=== PATIENT | male | born 1935 | race Caucasian/White ===

== ENCOUNTER 2022-12-31 16:52 | Inpatient (IN) | payer OTHER, SELFPAY ==
[2022-12-31 15:40] VITALS: BP 174/88; PULSE 88; RESP 18; TEMP 36.8; O2SAT 96
[2022-12-31 16:00] VITALS: O2SAT 96
[2022-12-31 16:23] VITALS: BMI 26.9
[2022-12-31 16:41] VITALS: BP 160/88; PULSE 89; RESP 18; TEMP 37.3; O2SAT 95
[2022-12-31] MEDS: 0.9% Saline Lock 10 ML Syringe IV (18:41)
[2022-12-31] MEDS: Furosemide 20 MG/2 ML VIAL IV (18:41)
--- NOTE | 2022-12-31 18:49 | PCM.HP.STD ---
HPI - General General Date of Admission: 12/31/22 HPI Narrative KEVIN LIRA, is a 87 M who presents from outside hospital with increased shortness of breath. According to him and his family he generally does not see doctors and does not take any medications at home but was recently being worked up for possible prostate cancer. He has not obtained a biopsy and they are discussing whether or not even want to proceed with a biopsy because they do not want to do any chemotherapy or radiation. With the increased shortness of breath they present to the outside hospital and they found a moderately sized right pleural effusion with either a pulmonary mass or pneumonia so was given Rocephin. There is also on CT scan evidence of bony metastases which is supported by an elevated alk phos. Of note his proBNP was also elevated but there is no history of heart failure. [facility] Medical History (Updated 12/31/22 @ 18:[address] Ren Moran MD) Pneumonia Prostate cancer Home Medications NK 07/25/22 [History Last Taken Unknown] Allergy/AdvReac Type Severity Reaction Status Date / Time No Known Allergies Allergy Unverified 11/19/22 11:29 Family History Father Cancer breast cancer Mother Diabetes Brother Cancer unknown Surgical History H/O umbilical hernia repair Social History Smoking Status: Former smoker quit date: 08/13/07 ROS Constitutional Constitutional: Denies chills, fatigue, fever(s) or malaise Eyes Eyes: Denies blurry vision ENT HEENT: Denies headache(s) or nasal discharge Cardiovascular Cardiovascular: Denies chest pain, dyspnea on exertion or syncope Respiratory/Chest Respiratory/Chest: Reports shortness of breath at rest and shortness of breath with exertion; Denies cough Gastrointestinal Gastrointestinal: Denies constipation, diarrhea, nausea or vomiting Genitourinary Genitourinary: Denies dysuria Neurologic Neurologic: Denies focal weakness, numbness or tremor(s) Psychiatric Psychiatric: Denies anxiety or depression Vital Signs Vital Signs Vital Signs: 12/31/22 15:40 12/31/22 16:41 12/31/22 16:00 Temperature 98.2 F 99.2 F H Temperature Source Oral Oral Pulse Rate 88 89 Respiratory Rate 18 18 Respiratory Effort Normal Non-Labored Accessory Muscle Use Respiratory Depth Normal Respiratory Pattern Normal Blood Pressure 174/88 H 160/88 H Blood Pressure Mean 116 112 Blood Pressure Source Monitor Monitor Blood Pressure Position Semi-Fowlers Semi-Fowlers Blood Pressure Location Left Arm Left Arm Pulse Ox 96 95 96 Oxygen Delivery Method Nasal Cannula Nasal Cannula Nasal Cannula Oxygen Flow Rate (L/min) 4 3 4 Weight Weight: 177 lb 4.026 oz Body Mass Index (BMI) 26.9 Physical Exam Narrative General: Alert, Oriented x3, Cooperative, No apparent distress HEENT: Atraumatic, PERRLA, EOMI, Normocephalic, hard of hearing Oral: Moist Mucosa Neck: Supple, No JVD Lungs: Diminished, Normal air movement, No rhonchi, No wheeze, No rales, could not speak in complete sentences Cardiovascular: Regular rate, Regular Rhythm, Normal S1, Normal S2, No murmurs Abdomen: Soft, Non Tender, Non-Distended, No Hepato-splenomegaly Extremities: Edema, Capillary Refill Less than 3 Seconds Skin: No rashes, No breakdown Musculoskeletal: No Tenderness to Palpation of Joints or Extremities Neurological: Cranial nerves II-XII grossly intact, Motor Exam 5/5 strength throughout, Sensory exam intact to light touch and pain Psych/Mental Status: Normal Affect, Appropriate Assessment & Plan Assessment/Plan (1) Hypoxia: PLAN: Plan 1. Acute hypoxia secondary to pneumonia versus CHF exacerbation/pleural effusion possibly malignant ? He does not have a medical history of CHF however given the pleural effusion on my review of his chest x-ray image as well as his lower extremity edema and the elevated proBNP on from the outside hospital this is a possibility ? Of note troponins were unremarkable at the outside hospital ? We will trial him on a dose of IV Lasix this evening and obtain an echo in the morning ? We will continue with antibiotics for another 24 to 48 hours pending results of the sputum culture, he is afebrile without a leukocytosis ? We will obtain thoracentesis to be both therapeutic and diagnostic I will also obtain cytology 2. 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 I had a 25-minute advance care planning discussion based on the prognosis and diagnosis of prostate cancer ? His PSA at the outside hospital was elevated to 860 and he does have what appears to be bony metastatic lesions in his spine as well as mediastinal lymphadenopathy. ? He is not even sure that he wants to proceed with a biopsy and he knows that he does not want to do any treatment, other than a treatment that was discussed that he does not quite remember but involve a subcu injection every 3 months in his abdomen. I discussed with him that if he does not get a biopsy and we do not have a diagnosis that no treatment will be provided. We did discuss the possibility of hospice if he decides that he does not want to proceed with treatment and biopsy. ? Because they are unclear as to what they would want to do at the moment will not consult urology and since we do not have a diagnosis that is confirmed will not consult oncology at this time DVT: Lovenox Charges/Coding Visit Charges Inpatient E&M: 32926 Init Hosp L3 Procedures Hospitalists Procedures: 19352 Advncd Care Plan 30 Min
--- NOTE | 2022-12-31 18:50 | ECHOD_ITS ---
Reason For Study: CHF Procedure This was a 2D Doppler, Color Flow transthoracic echocardiogram. Exam performed portable in patient room. Left Ventricle Normal size and thickness. The left ventricular ejection fraction is 60 %. Stage 2 diastolic dysfunction. Right Ventricle Normal right ventricle. Atria The left atrium is mildly enlarged. The right atrium is moderately enlarged. Bubble contrast study is negative for PFO/ASD. Mitral Valve Moderate focal mitral valve calcification of the posterior leaflet. Tricuspid Valve Mild to moderate (1-2+) tricuspid valve insufficiency. Pulmonary artery systolic pressure is 62 mmHg. Severe pulmonary hypertension. Aortic Valve Aortic sclerosis, no stenosis. Pulmonic Valve The pulmonic valve is not well visualized. Great Vessels Normal sized aortic root. Pericardium/Pleural No pericardial effusion. Medication Performed a rapid injection of agitated mix of 9 cc saline and 1cc air to assess for atrial septal defect. MMode/2D Measurements & Calculations LVIDd: 5.4 cm IVSd: 0.99 cm Ao root diam: 3.6 cm LVIDs: 3.7 cm LVPWd: 0.92 cm RVDd: 3.9 cm FS: 30.8 % LAV(MOD-bp): 81.2 ml LVAd ap4: 39.1 cm2 SV(MOD-sp4): 93.4 ml LAV(MOD-bp) Indexed: 41.8 ml/m2 LVLd ap4: 8.7 cm LAV(MOD-sp2): 76.0 ml EDV(MOD-sp4): 147.5 ml LAV(MOD-sp4): 78.0 ml EDV(sp4-el): 149.1 ml LVAs ap4: 21.8 cm2 LVLs ap4: 7.5 cm ESV(MOD-sp4): 54.1 ml ESV(sp4-el): 54.2 ml EF(MOD-sp4): 63.3 % EF(sp4-el): 63.7 % SV(sp4-el): 94.9 ml LA A4 area: 25.2 cm2 LA dimension(2D): 3.9 cm RA A4 area: 28.3 cm2 Time Measurements MV dec time: 0.21 sec Doppler Measurements & Calculations MV E max jose: 83.0 cm/sec Lat Peak E' Jose: 5.5 cm/sec Med Peak E' Jose: 5.8 cm/sec MV A max jose: 133.9 cm/sec E/E' lat: 15.0 E/E' med: 14.4 MV E/A: 0.62 Ao V2 max: 160.8 cm/sec LV V1 max: 92.6 cm/sec PA V2 max: 118.5 cm/sec Ao max P.3 mmHg LV V1 max P.4 mmHg TR max jose: 378.9 cm/sec TR max P.4 mmHg ECHO/Echo Complete Interpretation Summary The left ventricular ejection fraction is 60 %. Stage 2 diastolic dysfunction. The left atrium is mildly enlarged. The right atrium is moderately enlarged. Moderate focal mitral valve calcification of the posterior leaflet. Mild to moderate (1-2+) tricuspid valve insufficiency. Severe pulmonary hypertension. Aortic sclerosis, no stenosis. Ordering Physician: Ren Moran Referring Physician: Dai Tatum Performed By: Karen Colon, TIFFANIE
[2022-12-31 22:20] VITALS: BP 150/70; PULSE 95; RESP 16; TEMP 36.4; O2SAT 92
[2022-12-31 22:40] VITALS: BP 153/78; PULSE 95; RESP 18; TEMP 36.4; O2SAT 93
[2023-01-01] VITALS (13 sets, daily range): BP systolic 122–150; BP diastolic 64–89; PULSE 70–89; RESP 16–20; TEMP 36.6–36.9; O2SAT 92–96
--- NOTE | 2023-01-01 | IMM_PTH ---
PATIENT: KEVIN LIRA LOC: [facility] U#:[id number] AGE/SX: 87/M ROOM: [facility] RE12/31/[address]: Dr. Yvon Wilkinson MD : 1935 BED: 1 DIS: 01/02/2023 SPEC #: [id number] RECD: 01/03/23 13:16 STATUS: SOUElda REQ #: [id number] LATESHA: 01/01/23 00:[address]: Yvon Wilkinson DEPT: IMMUNOHISTOCHEMISTRY RECD BY: Leatha Max ENTERED: 01/03/23 13:18 SP TYPE: IMMUNO OTHR DR: MD Dr. Dai Green MD Dr. Nicholas F Kotsonis, MD Rebecca Bean, PA Tissues: THORACIC FLUID Procedures: RCC (add) NAPSIN A (add) Joel Ret (add) CK20 (add) CK5-6 (add) CK7 (add) CK8 (add) HEP PAR (add) MACRO (add) TTF1 (add) Vimentin (add) Pankeratin (initial) P40 (add) PSAP (add) PHYSICIAN & [place] [id number] SPECIMEN INFORMATION: Tissue Source: Thoracentesis fluid Clinical Info: Right pleural effusion Specimen Number: [id number] CPT code: 39625, 74664 x13 METHODOLOGY: Deparaffinized sections of prefer/formalin-fixed tissue or PAP/DQ stained slides are incubated with monoclonal/polyclonal antibodies/oligonucleotide probes. Localization is made via biotin free immunoperoxidase method. Appropriate controls are performed and reacted as expected. Results on target cell population are indicated in the following table: RESULTS: ANTIBODY / CLONE RESULT AE1-3 (AE1/AE3/PCK26) negative * CK7 (OV-TL12/30) negative * CK8 (06jjedE63) negative * CK20 (KS20.8) negative Vimentin (V9) negative * Macro (HAM-56) negative (positive in macrophages) TTF-1 (8G7G3/1) negative Napsin A (Rabbit Polyclonal) negative HepPar (OCh1E5) negative RCC (PN-15) negative PSAP (PASE/4LJ) negative CALRET (polyclonal) negative * CK5-6 (D5 & 1684) negative * P40 (BC28) negative *?Positive in mesothelial cells. These tests were developed and their performance characteristics determined by [facility]. They may not have been cleared or approved by the U.S. Food and Drug Administration. The FDA has determined that such clearance or approval is not necessary. The above immunohistochemical/dualISH markers are ordered and reviewed by the Pathologist. INTERPRETATION: Thoracentesis (cell block): Negative for malignant cells. SJ:fidencio 01/06/2023
--- NOTE | 2023-01-01 | FLU_PTH ---
PATIENT: KEVIN LIRA LOC: [facility] U#:[id number] AGE/SX: 87/M ROOM: [facility] RE12/31/[address]: Dr. Yvon Wilkinson MD : 1935 BED: 1 DIS: 01/02/2023 SPEC #: [id number] RECD: 01/01/23 13:45 STATUS: TAMMIE REMarietta #: [id number] LATESHA: 01/01/23 00:[address]: Yvon Wilkinson DEPT: CYTOLOGY RECD BY: Celia Anna ENTERED: 01/02/23 08:05 SP TYPE: Fluid OTHR DR: MD Dr. Dai Green MD Dr. Nicholas F Kotsonis, MD Rebecca Bean, PA Tissues: THORACIC FLUID Procedures: Special Stain Group II Surgery Specimen Level IV Cytospin Fluid HEADER OPERATION: Ultrasound-guided right thoracentesis PRE-OP DIAGNOSIS: Right pleural effusion TISSUE SUBMITTED: Thoracentesis fluid for cytology DIAGNOSIS CYTOLOGY Thoracentesis fluid for cytology (cytospin and cell block): Negative for malignant cells. See comment. LYN:fidencio 01/03/2023 COMMENT Immunohistochemistry ([id number]) supports the above diagnosis. Case has been reviewed in consultation with Dr. Harris who concurs with the above diagnosis. IDC:AM CYTOLOGY STUDY Slides are reviewed. CYTOLOGY GROSS Received is 180 ml of dark jolly cloudy fluid labeled with the patient's name and and designated per the requisition as thoracentesis. Submitted for cytology preparation including cell block. / fidencio 01/02/2023 TC:5 CPT: 30165, 90892
--- NOTE | 2023-01-01 02:06 | EKG12_ITS ---
Test Reason : CP Blood Pressure : / mmHG Vent. Rate : 088 BPM Atrial Rate : 088 BPM P-R Int : 220 ms QRS Dur : 090 ms QT Int : 356 ms P-R-T Axes : 046 045 085 degrees QTc Int : 430 ms Sinus rhythm with 1st degree A-V block Minimal voltage criteria for LVH, may be normal variant ( [place] product ) Nonspecific ST and T wave abnormality Abnormal ECG No previous ECGs available Confirmed by OSWALD STEVENSON, EMILY ([id number]), editor dictionary FARHAD PARR ([id number]) on 01/02/2023 8:50:29 AM Referred By: Dai Tatum Confirmed By:EMILY AKERS MD
[2023-01-01 02:41] LABS: Absolute Lymphocyte Count 0.74 X10^3/uL (0.83-4.51); Absolute Neutrophil Count 7.3 X10^3/uL (2.0-7.7); Basophil# 0.02 X10^3/uL; Basophil% 0.2 % (0-1); Eosinophil# 0.01 X10^3/uL; Eosinophils% 0.1 % (0-5); Hematocrit 43.5 % (40-54); Hemoglobin 13.5 g/dL (13.0-16.5); Lymphocyte # 0.74 X10^3/ul (0.83-4.51); Lymphocyte % 7.6 % (19-41); Mean Corpuscular Hgb 28.4 pg (27.0-32.0); Mean Corpuscular Volume 91.4 fL (80-94); Mean Platelet Vol. 9.8 fl (6.2-12.0); Monocyte# 1.66 X10^3/uL; NRBC Flagged by Analyzer 0 % (0-5); Neutrophil # 7.27 X10^3/uL (2.7-7.7); Neutrophil % 74.6 % (47-70); POSITIVE DIFFERENTIAL YES; Platelet Count 150 K/mm3 (150-450); RBC Distribution Width CV 14.6 % (11.6-14.6); RBC Distribution Width SD 48.8 fl (35.1-43.9); Red Blood Count 4.76 M/mm3 (4.6-6.2); White Blood Count 9.8 K/mm3 (4.4-11.0)
[2023-01-01 02:48] LABS: Differential Indicated SCAN CRITERIA MET
[2023-01-01 02:54] LABS: Magnesium 1.8 mg/dL (1.6-2.6)
[2023-01-01 03:02] LABS: ALB/GLOB Ratio 0.7 RATIO (0.9-2.4); Anion Gap 7 (5-15); BUN 15 mg/dL (7-18); BUN/Creat Ratio 21.8 RATIO (10-20); Calcium,Total 8.3 mg/dL (8.5-10.1); Chloride 96 mmol/L (98-107); Creatinine, Serum 0.69 mg/dL (0.70-1.30); EST Glomerular Filtration Rate 116 mL/min (>60); Est Glom Filt Rate - Afr Amer 140 mL/min (>60); Globulin 3.6 g/dL (2.2-4.2); Glucose 119 mg/dL (74-106); LDH 307 U/L (87-241); Potassium 4.1 mmol/L (3.5-5.1); Protein, Total 6.2 g/dL (6.4-8.2); Sodium Level 132 mmol/L (136-145)
--- NOTE | 2023-01-01 07:57 | PN.HOSP_ITS ---
Reason for Visit Reason for Visit: Diagnoses Hypoxemia (12/31/22) Subjective Subjective Follow-up for shortness of breath, metastatic prostate cancer with right moderate pleural effusion, volume this point. Objective Data Objective Data Vital Signs: Vital Signs Temp Pulse Resp BP Pulse Ox O2 Del Method O2 Flow Rate 98 F 70 18 130/77 H 92 Nasal Cannula 4 01/01/23 05:32 01/01/23 05:32 01/01/23 05:32 01/01/23 05:32 01/01/23 07:14 01/01/23 07:14 01/01/23 07:14 Oxygen Flow Rate (L/min) 4 Oxygen Delivery Method Nasal Cannula Weight: 177 lb 4.026 oz Body Mass Index (BMI) 26.9 Intake & Output: Intake and Output for Last 24 Hours 12/30/22 12/31/22 01/01/23 23:59 23:59 23:59 Intake Total 240 / 240 Balance 240 / 240 Lab / Micro Data Result Diagrams: 01/01/23 02:30 01/01/23 02:30 Labs: Laboratory Results - last 24 hr 01/01/23 02:30: WBC 9.8, RBC 4.76, Hgb 13.5, Hct 43.5, MCV 91.4, MCH 28.4, MCHC 31.0 L, RDW Std Deviation 48.8 H, RDW Coeff of Ran 14.6, Plt Count 150, MPV 9.8, Immature Gran % (Auto) 0.500, Neut % (Auto) 74.6 H, Lymph % (Auto) 7.6 L, [place] % (Auto) 17.0 H, Eos % (Auto) 0.1, Baso % (Auto) 0.2, Absolute Neuts (auto) 7.3, Absolute Lymphs (auto) 0.74 L, Nucleated RBC % 0 01/01/23 02:30: Sodium 132 L, Potassium 4.1, Chloride 96 L, Carbon Dioxide 29.0, Anion Gap 7, BUN 15, Creatinine 0.69 L, Estim Creat Clear Calc 51.30, Est GFR (MDRD) Af Amer 140, Est GFR (MDRD) Non-Af 116, BUN/Creatinine Ratio 21.8 H, Glucose 119 H, Calcium 8.3 L, Lactate Dehydrogenase 307 H, Total Protein 6.2 L, Globulin 3.6, Albumin/Globulin Ratio 0.7 L 01/01/23 02:30: Magnesium 1.8 Physical Exam Narrative Seen and examined. Patient still present in the room. Patient has increased frequency but denies dysuria. Patient was found to have prostate cancer in October 2022. He he has seen Dr. Us and PSA was found high. He also follows Dr. Rodriguez. CT scan shows bony metastasis in the spine with elevated alkaline phosphatase. Shortness of breath is better. Physical exam General: Alert, Oriented x3, Cooperative HEENT: Atraumatic, PERRLA, EOMI, Normocephalic Oral: Oral mucosa moist. No Gingival or Mucosal Lesions/ Ulcerations Neck: Supple, No JVD, Negative Carotid Bruits Lungs: Air entry diminished in right lung below fourth intercostal space. Stony dullness moderate pleural effusion. No crepitation/rhonchi. Cardiovascular: Regular rate, Regular Rhythm, Normal S1, Normal S2, No murmurs Abdomen: Bowel Sounds Present, Soft, Non Tender, Non-Distended : Increased frequency. No renal angle tenderness. No suprapubic tenderness. Extremities: No edema, Capillary Refill Less than 3 Seconds Skin: No rashes, No breakdown Musculoskeletal: No Tenderness to Palpation of Joints or Extremities Neurological: Cranial nerves II-XII grossly intact, DTR 2+/4 and Symmetrical, Neuro grossly intact Psych/Mental Status: Normal Affect, Appropriate. Assessment & Plan Assessment/Plan (1) Hypoxia: PLAN: Plan 87-year-old gentleman is being admitted from outside [facility] for increased shortness of breath. Moderate right pleural effusion with either pulmonary mass or pneumonia was found in outside hospital and empirically on Rocephin. On CT scan evidence of bony metastasis with elevated alkaline phosphatase. 1. Acute hypoxia most likely due to right pleural effusion possible malignant effusion differential includes acute on chronic heart failure and pneumonia: Patient is admitted in PCU, direct admit from general pulmonary and hospital. Patient had thoracocentesis today and 600 mL blood-tinged fluid was taken out. Fluid analysis shows mainly mononuclear cells. Follow-up chest x-ray shows no pneumothorax.patient had mainly right pleural effusion light criteria satisfies pleural effusion is not degenerative. Cytology is pending. Patient denies history of heart failure probably undiagnosed. Patient had elevated proBNP and mild lower extremity edema also shows he has history of undiagnosed heart failure. 2D echo was done which shows EF 60%, stage II diastolic dysfunction LA mildly enlarged, 1-2+ TR with severe pulmonary hypertension suggestive of acute on chronic HFpEF and severe pulmonary hypertension. Patient had 1 dose of IV Lasix. Troponins were unremarkable. Patient empirically on IV ceftriaxone and Zithromax. Confirmed with ultrasound that fluid for culture was sent. 2. 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 Discussed with Dr. Hong. Dr. Hong will see the patient. PSA at outside hospital was high [address] chest and appears to metastatic lesion in his spine and mediastinal lymphadenopathy. As per patient Dr. Us is planning for LHRH agonist and every 3 monthly injection. Patient does not want chemotherapy or radiotherapy or surgery. DVT: Lovenox Charges/Coding Visit Charges Inpatient E&M: 80126 Subs Hosp L2
[2023-01-01 08:34] LABS: International Normalized Ratio 1.3; Partial Thromboplast Time 34.8 Seconds (24.1-36.2); Prothrombin Time (Protime)PT. 15.5 SECONDS (11.7-14.9)
[2023-01-01] MEDS: Ceftriaxone 1 GM/50 ML BAG IV (09:34)
[2023-01-01] MEDS: 0.9% Saline Lock 10 ML Syringe IV (09:34)
--- NOTE | 2023-01-01 11:20 | CASEMGMT ---
LORY HERRON Face to Face with patient for initial transition planning/care coordination assessment. RN GOPAL introduced self and role at [facility]. Patient lying in bed, alert and oriented, son at bedside. Patient willing to participate in assessment and is able to answer all questions appropriately. Care providers, pharmacy, and demographics verified. Patient wishes to discharge home, denies need for home health at this time. Patient states he has no further needs or concerns at this time. CM to follow for discharge planning needs that may arise. PCP: Adi Specialists: Hal, oncologist; Abbea, urologist Preferred Pharmacy: [facility] Insurance: [place] Prescription Benefit: none Living Will/HPOA: yes, son Caleb Avila LNOK: 12 children Living Arrangements: Patient lives alone in a single story home with ramp to enter the home. Patient states he is independent at home. Transportation: [employer] DME/HHC: patient has shower chair, raised toilet, cane, walker, grab bars. Patient has generator at home. Son states that is brother has concentrator with fillable tanks possible available for patient, he will check with brother. No previous HHC or SNF. Disposition Plan: Patient to discharge home with family support and follow-up plans in place. Will monitor for home oxygen. Archana MEI, RN, CM
[2023-01-01] MEDS: Lidocaine 2% (20 ml mdv) 20 ML Vial INFILT (13:22)
--- NOTE | 2023-01-01 13:40 | RAD_ITS ---
STUDY: X-RAY CHEST REASON FOR EXAM: Male, 87 years old. Post thora TECHNIQUE: A PA inspiration and expiration views. COMPARISON: Comparison is made with prior study December 31, 2022. FINDINGS: The patient is status post right thoracentesis. There is no evidence of pneumothorax. RAD/Chest Insp/Exp 2 View IMPRESSION: No evidence of pneumothorax following the right thoracentesis. Electronically Signed: Bill Espinoza MD at 14:33 EDT ,
[2023-01-01 13:50] LABS: Cytology, Body Fluid / CSF SEE PATHOLOGY REPORT
[2023-01-01 14:03] LABS: Body Fluid Mononuclear WBC # 5.544 10^3/uL; Body Fluid Polynuclear WBC # 0.482 10^3/uL; Body Fluid Total Cells Counted 6.108 10^3/ul; Red Cell Count/Body Fluid 0.023 10^6/ul; White Blood Count/Body Fluid 6.026 10^3/uL
[2023-01-01 14:23] LABS: Auto B Fluid Analyzer BKGD Ct COUNTS W/IN LIMITS (W/IN LIMITS)
[2023-01-01 14:24] LABS: Appearance/Body Fluid SL CLDY; Color/Body Fluid PINK; Source- Body Fluid THORACENTESIS
[2023-01-01 14:25] LABS: Glucose, Body Fluid 126 mg/dL (40-70); LDH,Body Fluid 186 Units/l (Not Establ.); Protein, Body Fluid 3.2 g/dL (Not Establ.)
[2023-01-01 15:02] LABS: Lymphocytes 81 %; Mesothelial Cells 4 %; Monocytes 4 %; Neutrophil (Segs) 11 %
[2023-01-01 15:03] LABS: Body Fluid QC Type(s) BF4Q
--- NOTE | 2023-01-01 16:15 | CON.PCM.UR_ITS ---
Assessment & Plan Assessment/Plan (1) Hypoxia: PLAN: Patient improving (2) Pneumonia: PLAN: Stable and improving (3) Prostate cancer: PLAN: He has advanced metastatic prostate cancer. Today I spoke to the patient about treatment options. He can call my office for an appointment and we can get him started on hormone deprivation therapy as well as antiandrogens in the office. We discussed the side effects of treatment with expect with the medications the benefit of slowing the growth he understands it will not be curative I understands that the average response rate varies between 18 to 24 months. He understands the risk and benefits this was discussed with him today. If he wishes to start hormone deprivation therapy he can call my office after discharge and make an appointment. Call me with questions HPI Consult Data Date of Consult: 01/01/23 HPI Narrative Reason for Consultation: Advanced prostate cancer HPI Narrative: KEVIN LIRA, is a 87 M who presents to [facility] with sh ortness of breath and pneumonia and hypoxia, he does have a history of a very elevated PSA recent x-rays and scans demonstrate he has metastatic prostate cancer. Seen in the office regarding the situation and today I came by and spoke to the patient regarding his diagnosis of prostate cancer. He can definitely make an appointment to see me in the office and we can start him on hormone deprivation therapy and oral antiandrogens as a very simple but effective treatment for his prostate cancer I told the patient with his stage and grade of cancer that the life expectancy with treatment can vary between 18 to 24 months depending on response to treatment. He does have a very low performance status and has multiple medical problems. [facility] Medical History (Updated 01/01/23 @ 16:[address] Raymundo Us MD) Pneumonia Prostate cancer Home Medications NK 07/25/22 [History Last Taken Unknown] Allergy/AdvReac Type Severity Reaction Status Date / Time No Known Allergies Allergy Unverified 11/19/22 11:29 Family History Father Cancer breast cancer Mother Diabetes Brother Cancer unknown Surgical History H/O umbilical hernia repair Social History Smoking Status: Former smoker quit date: 08/13/07 ROS Constitutional Constitutional: Denies chills, fever(s) or malaise Eyes Eyes: Denies blurry vision or change in vision ENT HEENT: Reports none Cardiovascular Cardiovascular: Denies chest pain or palpitations Respiratory/Chest Respiratory/Chest: Reports systems reviewed and no addt'l complaints, except as documented and as per HPI; Denies cough or shortness of breath with exertion Gastrointestinal Gastrointestinal: Denies abdominal pain, constipation or diarrhea Musculoskeletal Musculoskeletal: Denies back pain, joint stiffness or joint swelling Integumentary Integumentary: Denies dry skin, jaundice, lesions or rash Neurologic Neurologic: Denies confusion, syncope or weakness Psychiatric Psychiatric: Reports none; Denies anxiety or depression Endocrine Endocrinology: Denies excessive sweating, fatigue or flushing Hematologic/Lymphatic Hematologic/Lymphatic: Denies anemia, easy bleeding or easy bruising Physical Exam Const alert and oriented x3 General Appearance: cooperative HEENT normocephalic, head/scalp atraumatic, EAC's normal and TM's normal bilaterally Eyes PERRL and EOMs intact bilaterally Pupil: sluggish Neck no lymphadenopathy, supple and no JVD General: trachea midline Lymph Lymphatic: no lymphadenopathy noted, lymphedema and lymphadenopathy Resp normal respiratory effort, normal air movement and clear to auscultation b ilaterally Cardio regular rate, regular rhythm and peripheral pulses 2+ throughout GI soft to palpation, non-tender and non-distended Extremity normal capillary refill and no clubbing, cyanosis or edema General Extremity: no tenderness to palpation of joints or extremities Skin no rashes or lesions noted General Skin Exam: turgor normal Lesions: no lesions Rashes: no rashes Neuro CN's II-XII intact bilaterally Speech: speech normal Motor Exam: strength 5/5 throughout; Negative for general weakness Psych thought process normal, cooperative and affect normal Appearance: appropriate Lab / Micro Data Result Diagrams: 01/01/23 02:30 01/01/23 02:30 Labs: Laboratory Results - last 24 hr 01/01/23 02:30: WBC 9.8, RBC 4.76, Hgb 13.5, Hct 43.5, MCV 91.4, MCH 28.4, MCHC 31.0 L, RDW Std Deviation 48.8 H, RDW Coeff of Ran 14.6, Plt Count 150, MPV 9.8, Immature Gran % (Auto) 0.500, Neut % (Auto) 74.6 H, Lymph % (Auto) 7.6 L, [place] % (Auto) 17.0 H, Eos % (Auto) 0.1, Baso % (Auto) 0.2, Absolute Neuts (auto) 7.3, Absolute Lymphs (auto) 0.74 L, Nucleated RBC % 0 01/01/23 02:30: Sodium 132 L, Potassium 4.1, Chloride 96 L, Carbon Dioxide 29.0, Anion Gap 7, BUN 15, Creatinine 0.69 L, Estim Creat Clear Calc 51.30, Est GFR (MDRD) Af Amer 140, Est GFR (MDRD) Non-Af 116, BUN/Creatinine Ratio 21.8 H, Glucose 119 H, Calcium 8.3 L, Lactate Dehydrogenase 307 H, Total Protein 6.2 L, Globulin 3.6, Albumin/Globulin Ratio 0.7 L 01/01/23 02:30: Magnesium 1.8 01/01/23 08:00: PT 15.5 H, INR 1.3, APTT 34.8 01/01/23 13:46: Fluid Glucose 126 H, Fluid Total Protein 3.2, Fluid LDH 186 01/01/23 13:48: Fluid Source THORACENTESIS, Fluid Color PINK, Fluid Appearance SL CLDY, Fluid WBC 6.026, Fluid RBC 0.023, Fluid Tot Cell Count 6.108, Fld Polynuclear WBCs # 0.482, Fld Polynuclear WBCs % 8.0, Fluid Mononuclear WBCs 5.544, Fld Mononuclear WBCs % 92.0, Fluid Neutrophils 11, Fluid Lymphocytes 81, Fluid Monocytes 4, Fld Mesothelial Cells 4, Fl Pathologist Comment May follow, Fluid Comment 2 SEE COMMENT Radiology Impression Echocardiogram 12/31/22 18:50 Interpretation Summary The left ventricular ejection fraction is 60 %. Stage 2 diastolic dysfunction. The left atrium is mildly enlarged. The right atrium is moderately enlarged. Moderate focal mitral valve calcification of the posterior leaflet. Mild to moderate (1-2+) tricuspid valve insufficiency. Severe pulmonary hypertension. Aortic sclerosis, no stenosis. Ordering Physician: Ren Moran Referring Physician: Dai Tatum Performed By: Karen Colon, RDRANDALL Chest X-Ray 01/01/23 13:40 IMPRESSION: No evidence of pneumothorax following the right thoracentesis. Electronically Signed: Bill Espinoza MD at 14:33 EDT , Thoracentesis Ultrasound 01/01/23 17:55 IMPRESSION: Ultrasound-guided right thoracentesis. Electronically Signed: Bill Espinoza MD at 14:21 EDT ,
--- NOTE | 2023-01-01 17:55 | US_ITS ---
PROCEDURE: ULTRASOUND GUIDED THORACENTESIS. DATE: January 01, 2023. INDICATION: Male, 87 years old. Right pleural effusion. PHYSICIAN: Bill Espinoza M.D. PROCEDURE: The risks, benefits, and alternatives to the procedure were explained to the patient. The specific risks of bleeding, infection, and pneumothorax requiring chest tube insertion were discussed and accepted. Written informed consent was obtained. Ultrasonographic evaluation of the right lower pleural space was carried out. An adequate pocket was identified. The patient was placed in the sitting, upright position. The overlying skin was prepped and draped in sterile fashion. 1% lidocaine was administered subcutaneously for local anesthesia. Under ultrasound guidance, a 5 Azeri thoracentesis needle/catheter system was advanced into the right posterior lower pleural fluid collection. Approximately 600 mL of blood tinged fluid was drained. The catheter was removed, and a sterile dressing was applied. A specimen was collected and sent to the laboratory for analysis, as requested by the referring clinician. The patient tolerated the procedure well. A chest x-ray was ordered. US/Thoracentesis W US IMPRESSION: Ultrasound-guided right thoracentesis. Electronically Signed: Bill Espinoza MD at 14:21 EDT ,
[2023-01-01] MEDS: Docusate Sodium 100 MG Capsule PO (21:46)
[2023-01-02 01:00] VITALS: BP 122/86; PULSE 80; RESP 16; TEMP 36.6; O2SAT 92
[2023-01-02 03:56] VITALS: BP 126/65; PULSE 84; RESP 16; TEMP 36.8; O2SAT 94
[2023-01-02 07:38] VITALS: O2SAT 90
--- NOTE | 2023-01-02 09:42 | DCINST_ITS ---
Discharge Instructions Diet Discharge Diet: No restrictions Activity Discharge Activity: Return to Normal Activity Weight Bearing Status: Weight bearing as tolerated Dressing / Incision Call your doctor if you observe: Fever of 101 or Higher, Coldness, Increased Pain, Numbness or Tingling, Change in Color, Inability to urinate, Inability to have a bowel movement, Shortness of breath, Dizziness, Fainting spells, Swelling in the ankles, Chest pain, Prolonged hiccupping, Increased palpitations (irregular heartbeat) and Calf discomfort Follow Up Care When: IN 2 WEEKS Test Results: Test results from this visit will be discussed in further detail at your follow- up appointment, if applicable. Discharge Plan Admission Admit Date/Time: 12/31/22 16:52 Primary Reason for Your Visit: Prostate cancer mets with BONE, Spine Attending Provider: Yvon Wilkinson Primary Care Provider: Soledad Joshi Consulting Providers: Ren Moran Juan Miguel Instructions Patient Instructions: MACIEJ RN Thoracentesis Dc Discharge Orders/Prescriptions Prescriptions: New cefdinir 300 mg capsule 300 mg PO BID Qty: 10 0RF Referrals / Follow Up: Gurpreet Hong MD [Med Staff - Active Staff] - Raymundo Us MD [Med Staff - Active Staff] - Soledad Joshi PA [Primary Care Provider] - Disposition Disposition (needs filled in before D/C Order can be placed): Home, Self Care
[2023-01-02] MEDS: 0.9% Saline Lock 10 ML Syringe IV (10:22)
[2023-01-02] MEDS: Ceftriaxone 1 GM/50 ML BAG IV (10:22)
[2023-01-02] MEDS: Docusate Sodium 100 MG Capsule PO (10:23)
[2023-01-02] MEDS: Enoxaparin 40 MG/0.4 ML Syringe SC (10:24)
[2023-01-02 10:53] VITALS: BP 112/66; PULSE 77; RESP 16; TEMP 36.7; O2SAT 95
--- NOTE | 2023-01-02 11:52 | PCM.DC.SUM ---
Providers Date of Admission: 12/31/22 Date of Discharge: 01/02/23 Primary Care Physician: YESSICA Ye Consultations 01/01/23 13:09 Consult: Urology Routine Consulting Provider: Raymundo Us Reason for Consult: Metastatic prosate Ca EMERGENT Consult: No MD Notified: Yes Date Notified: 01/01/23 Time Notified: 13:10 Method of Notification: Text Reason For Visit: CHEST PAIN/PNEUMONITIS Diagnosis Discharge Diagnosis (1) Hypoxia: Status: Acute Code(s): R09.02 - Hypoxemia (2) Pneumonia: Status: Acute Code(s): J18.9 - Pneumonia, unspecified organism (3) Prostate cancer: Status: Acute Code(s): C61 - Malignant neoplasm of prostate Plan 87-year-old gentleman is being admitted from outside [facility] for increased shortness of breath. Moderate right pleural effusion with either pulmonary mass or pneumonia was found in outside hospital and empirically on Rocephin. On CT scan evidence of bony metastasis with elevated alkaline phosphatase. 1. Acute hypoxia most likely due to right pleural effusion possible malignant effusion differential includes acute on chronic heart failure and low priority of pneumonia: Patient is admitted in PCU, direct admit from general pulmonary and hospital. Patient had thoracocentesis today and 600 mL blood-tinged fluid was taken out. Fluid analysis shows mainly mononuclear cells. Follow-up chest x-ray shows no pneumothorax.patient had mainly right pleural effusion light criteria satisfies pleural effusion is exudative. Cytology is pending. Patient denies history of heart failure probably undiagnosed. Patient had elevated proBNP and mild lower extremity edema also shows he has history of undiagnosed heart failure. 2D echo was done which shows EF 60%, stage II diastolic dysfunction LA mildly enlarged, 1-2+ TR with severe pulmonary hypertension suggestive of acute on chronic HFpEF and severe pulmonary hypertension. Patient had 1 dose of IV Lasix. Troponins were unremarkable. Patient empirically on IV ceftriaxone and Zithromax. Confirmed with ultrasound that fluid for culture was sent. 01/02: Fluid cytology is pending. Patient is shortness of breath is better. Fluid culture not showing up although IR industrial safety and health technician is stated that she send the fluid culture. I called microbiology and they have extra fluid tube so they will process the culture. Patient empirically discharged on 5 more days of cefdinir to complete a total of 7 days of antibiotic. Discussed with Dr. Hong and he will follow-up with cytology and culture. 2. 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 Discussed with Dr. Hong. Dr. Hong will see the patient. PSA at outside hospital was high [address] chest and appears to metastatic lesion in his spine and mediastinal lymphadenopathy. As per patient Dr. Us is planning for LHRH agonist and every 3 monthly injection. Patient does not want chemotherapy or radiotherapy or surgery. 01/02 patient seen by urologist. He will follow-up in the office for ADT with Dr. Wolfe for LHRH agonist and antiandrogen. This was discussed with the patient and his son near the bedside. DVT: Lovenox Discharge medication reconciliation done. Discharge follow-up instructions completed. Discharge process discussed with the patient and all questions were answered to patient's satisfaction. Total time spent, exact 35 minutes on discharge meds reconciliation, examination, coordination of care with nurses and ancillary staff, review of imaging and blood test and discussion with the patient on follow-up instructions. Medications at Discharge Home Medications cefdinir 300 mg capsule 300 mg PO BID #10 caps 01/02/23 Physical Exam Narrative Seen and examined. Shortness of breath has improved . Patient was found to have prostate cancer in October 2022. He he has seen Dr. Us and PSA was found high. He also follows Dr. Hong. CT scan shows bony metastasis in the spine with elevated alkaline phosphatase. Shortness of breath is better. Physical exam General: Alert, Oriented x3, Cooperative HEENT: Atraumatic, PERRLA, EOMI, Normocephalic Oral: Oral mucosa moist. No Gingival or Mucosal Lesions/ Ulcerations Neck: Supple, No JVD, Negative Carotid Bruits Lungs: Air entry diminished in right lung below fourth intercostal space. Stony dullness moderate pleural effusion. No crepitation/rhonchi. Cardiovascular: Regular rate, Regular Rhythm, Normal S1, Normal S2, No murmurs Abdomen: Bowel Sounds Present, Soft, Non Tender, Non-Distended : Increased frequency. No renal angle tenderness. No suprapubic tenderness. Extremities: No edema, Capillary Refill Less than 3 Seconds Skin: No rashes, No breakdown Musculoskeletal: No Tenderness to Palpation of Joints or Extremities Neurological: Cranial nerves II-XII grossly intact, DTR 2+/4 and Symmetrical, Neuro grossly intact Psych/Mental Status: Normal Affect, Appropriate. Weight / BMI Weight Weight: 177 lb 4.026 oz Body Mass Index (BMI) 26.9 ABG / Lab / Microbiology Data Result Diagrams: 01/01/23 02:30 01/01/23 02:30 Laboratory: Laboratory Results - last 24 hr 01/01/23 13:46: Fluid Glucose 126 H, Fluid Total Protein 3.2, Fluid LDH 186 01/01/23 13:48: Fluid Source THORACENTESIS, Fluid Color PINK, Fluid Appearance SL CLDY, Fluid WBC 6.026, Fluid RBC 0.023, Fluid Tot Cell Count 6.108, Fld Polynuclear WBCs # 0.482, Fld Polynuclear WBCs % 8.0, Fluid Mononuclear WBCs 5.544, Fld Mononuclear WBCs % 92.0, Fluid Neutrophils 11, Fluid Lymphocytes 81, Fluid Monocytes 4, Fld Mesothelial Cells 4, Fl Pathologist Comment May follow, Fluid Comment 2 SEE COMMENT 01/02/23 05:00: Total PSA 683.00 H Radiography Diagnostic Testing: Radiology Impression Echocardiogram 12/31/22 18:50 Interpretation Summary The left ventricular ejection fraction is 60 %. Stage 2 diastolic dysfunction. The left atrium is mildly enlarged. The right atrium is moderately enlarged. Moderate focal mitral valve calcification of the posterior leaflet. Mild to moderate (1-2+) tricuspid valve insufficiency. Severe pulmonary hypertension. Aortic sclerosis, no stenosis. Ordering Physician: Ren Moran Referring Physician: Dai Tatum Performed By: Karen Colon RDCS Chest X-Ray 01/01/23 13:40 IMPRESSION: No evidence of pneumothorax following the right thoracentesis. Electronically Signed: Bill Espinoza MD at 14:33 EDT , Thoracentesis Ultrasound 01/01/23 17:55 IMPRESSION: Ultrasound-guided right thoracentesis. Electronically Signed: Bill Espinoza MD at 14:21 EDT , D/C Instructions Discharge Diet: No restrictions Weight Bearing Status: Weight bearing as tolerated Call your doctor if you observe: Fever of 101 or Higher, Coldness, Increased Pain, Numbness or Tingling, Change in Color, Inability to urinate, Inability to have a bowel movement, Shortness of breath, Dizziness, Fainting spells, Swelling in the ankles, Chest pain, Prolonged hiccupping, Increased palpitations (irregular heartbeat) and Calf discomfort When: IN 2 WEEKS Meaningful Use Info Meaningful Use Diagnoses (Choose all that apply): None applicable Discharge Plan Admission Admit Date/Time: 12/31/22 16:52 Primary Reason for Your Visit: Prostate cancer mets with BONE, Spine Attending Provider: Yvon Wilkinson Primary Care Provider: Soledad Joshi Consulting Providers: Ren Moran ; Raymundo Us Instructions Patient Instructions: MACIEJ RN Thoracentesis Dc Discharge Orders/Prescriptions Prescriptions: New cefdinir 300 mg capsule 300 mg PO BID Qty: 10 0RF Referrals / Follow Up: Gurpreet Hong MD [Med Staff - Active Staff] - Within 2 Weeks Raymundo Us MD [Med Staff - Active Staff] - 01/23/23 1:45 pm Soledad Joshi PA [Primary Care Provider] - Disposition Disposition (needs filled in before D/C Order can be placed): Home, Self Care Charges/Coding Visit Charges Inpatient E&M: 75199 Disch Hosp >30min
[2023-01-02 13:24] VITALS: O2SAT 84; O2SAT 89; O2SAT 91
--- NOTE | 2023-01-02 13:42 | CASEMGMT ---
RN GOPAL notified that patient qualifies for home oxygen. RN GOPAL reviewed DME agencies with patient, patient prefers [employer]. Script received and referral sent to [employer] via [employer]. Patient has pulse ox at home. Patient had no further questions or concern for discharge. Declined further needs.
[2023-01-03 12:42] LABS: Pathologist Comment/Body Fluid Reviewed
== END 2023-01-02 16:01 | disposition home or self-care (01) | DRG 193 ==
PROVIDERS: Family Medicine; Radiology Diagnostic Radiology; Admitting Provider Student in an Organized Health Care Education/Training Program; Referring Provider Student in an Organized Health Care Education/Training Program; Visit Provider Internal Medicine
DX: J18.9 Pneumonia, unspecified organism (principal); I50.33 Acute on chronic diastolic (congestive) heart failure; C79.51 Secondary malignant neoplasm of bone; C78.00 Secondary malignant neoplasm of unspecified lung; J90 Pleural effusion, not elsewhere classified; I27.20 Pulmonary hypertension, unspecified; C61 Malignant neoplasm of prostate; R09.02 Hypoxemia; Z79.899 Other long term (current) drug therapy; Z87.891 Personal history of nicotine dependence
CPT/HCPCS: 32555; 36415; 71046; 80048; 82945; 83615; 83735; 84153; 84156; 84157; 85025; 85610; 85730; 87070; 87075; 87205; 88108; 88305; 88313; 88341; 88342; 89050; 93005; 93306; J7040; A4216; J1940